=== PATIENT | female | born 1970 | race Caucasian/White ===

== ENCOUNTER 2019-03-16 14:07 | Emergency (ER) | payer OTHER ==
[~2019-03-16] VITALS: Ht 167.6 cm; Wt 158.0 kg
[2019-03-16 14:12] VITALS: Ht 167.6 cm; Wt 158.0 kg
[2019-03-16] MEDS ORDERED: SOD CHLORIDE 0.9% 1,000 ML IV STA (16:21)
[2019-03-16] MEDS ORDERED: ONDANSETRON 4 MG INJ IV STA (16:21)
[2019-03-16] MEDS ORDERED: morphine 4 MG/ML VIAL IV STA (16:21)
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
[2019-03-16 19:52] VITALS: BP 125/86; PULSE 86; RESP 18
== END 2019-03-16 19:57 | disposition home or self-care (01) ==
LOC: E/R 14:07
DX: S80.12XA Contusion of left lower leg, initial encounter (principal); S82.832A Other fracture of upper and lower end of left fibula, initial encounter for closed fracture; F17.210 Nicotine dependence, cigarettes, uncomplicated; W01.0XXA Fall on same level from slipping, tripping and stumbling without subsequent striking against object, initial encounter; Y92.9 Unspecified place or not applicable
CPT/HCPCS: 29505; 73550; 73590; 80053; 84703; 85025; 85610; 85730; 93971; 96374; 96375; J2270; J2405; J7030; Z7502